=== PATIENT | female | born 1990 | race Two or more races ===

== ENCOUNTER 2016-10-09 23:26 | Emergency (ER) | payer SELFPAY ==
--- NOTE | 2016-10-13 19:08 | ER ---
ADMIT: 10/09/2016 RM/LOC: ER [facility] MR#: [id number] [facility] [address] [place], [place] [address] LILLIAM JACK [address] [place], [place] [id number] Emergency Room Report SEX: F AGE: 26 : 1990 DATE: 10/09/2016 HISTORY OF PRESENT ILLNESS: The patient is a 26-year-old female, who presents to emergency room with right upper quadrant pain. She says this started four days ago. She complains of burning on urination. She stated that she has some nausea and had a hard bowel movement this morning. REVIEW OF SYSTEMS: She has not had any menstrual periods for 3 years due to the fact that she takes Depo shots. ALLERGIES: NO ALLERGIES. PHYSICAL EXAMINATION: ABDOMEN: Right upper quadrant abdominal pain radiating to the right upper flank. VITAL SIGNS: Within normal limits. Blood pressure 117/73, heart rate is 89, respirations 18, temp is 96.8. Physical examination within normal limits otherwise. LABORATORY DATA: Chemistry; glucose 239, hemoglobin A1c pending. Urine is negative. UA; leukocytes trace, blood trace, rbc's 3. UA glucose 1000. DISPOSITION: Dr. Langston consulted. We are going to add serum ketones and hemoglobin A1c to the labs and a right upper quadrant abdominal pain, gallbladder ultrasound with liver pending. The patient had been given Toradol, 2 L of IV fluids altogether at the end and Dr. Langston will dispose the patient according to labs. Her KUB negative for constipation, nonspecific air bowel sign. MIGUEL Toscano / Víctor Langston MD / [facility] JOB #: [id number] CC: Víctor Langston MD, Attending Physician
--- NOTE | 2016-10-13 19:09 | ER ---
ADMIT: 10/09/2016 RM/LOC: ER [facility] MR#: [id number] [place], [place] [id number] LILLIAM JACK [address] [place], [place] [id number] Emergency Room Report SEX: F AGE: 26 : 1990 DATE: 10/09/2016 The patient was signed out to me. Please refer to the main note for history. The patient is a 26-year-old female who came to us previously with a chief complaint of right upper quadrant abdominal pain. The pain was moderately controlled. The patient received IV fluids. Lab work was noncontributory. The patient was not . CMP was also normal. WBC was in the range of 7. Ultrasound of the right upper quadrant was requested. The ultrasound result showed no gallstones, normal common bile duct diameter. There is no pericholecystic fluid. The gallbladder wall is borderline thickened to 3 mm, but the gallbladder is not fully distended also. I went and re-examined the patient. The patient had no right upper quadrant tenderness or pain and was negative for [place] sign. The patient had obvious right lateral chest wall tenderness which increases significantly with palpation and pressing over the area. The patient also had elevated blood sugar in the range of 200 and elevated hemoglobin A1c to 8.5. Considering the criteria for diagnosis of diabetes, another confirmatory test should also be followed up by the primary doctor. The patient was given a prescription for 10 of [place] for chest wall pain. The patient was advised to follow up with the primary care doctor for the pain and also for rule out/rule in diabetes. The patient is stable, and was discharged home. Víctor Langston MD/ [facility] JOB #: [id number] CC: Víctor Langston MD, Attending Physician
== END 2016-10-10 02:56 | disposition home or self-care (01) ==
LOC: ER 23:26
DX: R73.9 Hyperglycemia, unspecified (principal); R10.11 Right upper quadrant pain; R07.89 Other chest pain; Z79.899 Other long term (current) drug therapy